=== PATIENT | female | born 1985 | race Caucasian/White ===

== ENCOUNTER 2017-10-16 18:03 | Emergency (ER) | payer OTHER ==
[~2017-10-16] VITALS: Ht 152.4 cm; Wt 72.2 kg
[~2017-10-16 18:03] MED LIST: FOLI1TAB PO; IBUP800 PO; LEXA10TA PO; METH2.5 PO; NORT1TAB3 PO; ONDA1TAB16 PO; PRED5SOL PO
[2017-10-16 18:05] VITALS: BP 184/97; PULSE 82; RESP 16; TEMP 98.3
[2017-10-16 18:18] LABS: BILIRUBIN, URINE NEG (NEG); BLOOD, URINE NEG (NEG); GLUCOSE,URINE NEG (NEG); KETONE, URINE NEG (NEG); NITRITE,URINE NEG (NEG); URINE COLOR YELLOW (YELLW/STRAW); URINE LEUKOCYTE ESTERASE NEG (NEG)
[2017-10-16] MEDS ORDERED: TRAM50TA PO (18:18)
[2017-10-16 18:23] LABS: MUCUS URINE FEW /lpf (OCC); SQUAMOUS EPITHELIAL CELL URINE >8 /hpf (0-5); WBC, URINE 0-2 /hpf (0-5)
[2017-10-16 18:24] LABS: BACTERIA, URINE RARE /hpf
[2017-10-16] MEDS ORDERED: SODIUM CHLOR 0.9% 1000 ML INJ 1,000 ML IV ONE (18:30)
[2017-10-16] MEDS ORDERED: KETOROLAC TROMETHAMINE 30 MG/ML (IVP) VIAL IV PUSH ONE (18:30)
[2017-10-16] MEDS ORDERED: ONDANSETRON HCL 4 MG/2 ML VIAL IV PUSH ONE (18:30)
--- NOTE | 2017-10-16 18:33 | PD ---
HPI Chief Complaint: Flank/Kidney Pain Time Seen by Provider: 18:20 Travel History International Travel<30 days: No Contact w/Intl Traveler<30days: No Traveled to known affect area: No History of Present Illness HPI 32-year-old female complaints of right flank pain. Patient states that she started having right flank pain 3 days ago. Patient states the pain lasted a short period of time and completely resolved. Patient started having right flank pain again today. Patient states that the pain started about 3 hours prior to arrival. Patient stated pain is sharp pain started in the right flank area with radiation to right side the abdomen. Patient denies any fever chills. Patient states that she has nausea. Patient denies any vomiting diarrhea. Patient denies any dysuria frequency. Patient denies any vaginal discharge or bleeding. On a scale of 1-10 the pain is a 7. Patient has history kidney stone in the past. PFSH Past Medical History Diminished Hearing: No Kidney Stones: Yes Musculoskeletal: Yes (ANKYLOSIS SPONDILITIS) Immunizations Current: Yes ?: Not LMP: 2 weeks : 2 Para: 1 Miscarriage: 1 : 0 Past Surgical History AICD: No Section: Yes Gynecologic Surgery: Yes (C SECTION) Joint Replacement: No Pacemaker: No Other Surgery: Yes Social History Alcohol Use: Yes (SOCIAL ) Tobacco Use: No Substance Use: No Allergies-Medications (Allergen,Severity, Reaction): Coded Allergies: No Known Allergies (Verified Adverse Reaction, Unknown, 10/16/17) Reported Meds & Prescriptions Reported Meds & Active Scripts Active Reported Tramadol (Tramadol HCl) 50 Mg Tab 50 Mg PO Q4H PRN Review of Systems General / Constitutional: No: Fever Eyes: No: Visual changes HENT: No: Headaches Cardiovascular: No: Chest Pain or Discomfort Respiratory: No: Shortness of Breath Gastrointestinal: Positive: Nausea, Abdominal Pain Genitourinary: No: Dysuria Musculoskeletal: No: Pain Skin: No Rash Neurologic: No: Weakness Psychiatric: No: Depression Endocrine: No: Polydipsia Hematologic/Lymphatic: No: Easy Bruising Physical Exam Narrative GENERAL: Well-nourished, well-developed patient. SKIN: Focused skin assessment warm/dry. HEAD: Normocephalic. EYES: No scleral icterus. No injection or drainage. NECK: Supple, trachea midline. No JVD or lymphadenopathy. CARDIOVASCULAR: Regular rate and rhythm without murmurs, gallops, or rubs. RESPIRATORY: Breath sounds equal bilaterally. No accessory muscle use. GASTROINTESTINAL: Abdomen soft, nondistended. Patient has mild tenderness on palpation right mid abdomen. No rebound tenderness. No mass. MUSCULOSKELETAL: No cyanosis, or edema. BACK: Patient has mild tenderness in palpation right flank area, without obvious deformity. No CVA tenderness. Data Data Last Documented VS Vital Signs Date Time Temp Pulse Resp B/P (MAP) Pulse Ox O2 Delivery O2 Flow Rate FiO2 10/16/17 18:05 98.3 82 16 184/97 (126) Orders Orders Ed Urine Pregnancytest Poc (10/16/17 18:09) Urinalysis - C+S If Indicated (10/16/17 18:09) Basic Metabolic Panel (Bmp) (10/16/17 18:25) Iv Access Insert/Monitor (10/16/17 18:25) Ecg Monitoring (10/16/17 18:25) Oximetry (10/16/17 18:25) Ct Abd/Pel W/O Iv Contrast (10/16/17 18:25) Sodium Chlor 0.9% 1000 Ml Inj (Ns 1000 M (10/16/17 18:30) Ondansetron Inj (Zofran Inj) (10/16/17 18:30) Ketorolac Inj (Toradol Inj) (10/16/17 18:30) Labs Laboratory Tests Test 10/16/17 18:15 10/16/17 18:40 Urine Collection Type VOIDED Urine Color YELLOW Urine Turbidity SL CLOUDY Urine pH 6.0 Urine Specific [place] GREATER/EQUAL 1.030 Urine Protein NEG mg/dL Urine Glucose (UA) NEG mg/dL Urine Ketones NEG mg/dL Urine Occult Blood NEG Urine Nitrite NEG Urine Bilirubin NEG Urine Urobilinogen 0.2 MG/DL Urine Leukocyte Esterase NEG Urine WBC 0-2 /hpf Urine Squamous Epithelial Cells >8 /hpf Urine Bacteria RARE /hpf Urine Mucus FEW /lpf Microscopic Urinalysis Comment CULT NOT INDICATED Blood Urea Nitrogen 12 MG/DL Creatinine 0.73 MG/DL Random Glucose 96 MG/DL Calcium Level 9.0 MG/DL Sodium Level 141 MEQ/L Potassium Level 3.6 MEQ/L Chloride Level 108 MEQ/L Carbon Dioxide Level 26.7 MEQ/L Anion Gap 6 MEQ/L Estimat Glomerular Filtration Rate 92 ML/MIN [facility] Medical Decision Making Medical Screen Exam Complete: Yes Emergency Medical Condition: Yes Interpretation(s) Last Impressions Abdomen/Pelvis CT 10/16/17 1825 Signed Impressions: CONCLUSION: 1. There is a 2 mm stone at the right ureterovesical junction causing right hy dronephrosis and hydroureter. No other renal stones are present. 2. No other acute finding is identified. Urine test negative. UA is negative. BMP within normal limits. Differential Diagnosis Differential diagnosis including nephrolithiasis, pyelonephritis. Narrative Course 32-year-old female with right flank pain with radiation to right mid abdomen. History of kidney stone. Normal saline solution 1 L IV bolus. Toradol 30 mg IV. Zofran 4 mg IV. Diagnosis Primary Impression: Nephrolithiasis Patient Instructions: General Instructions Additional Instructions: Take medications as needed for pain. Follow-up with urologist. Return if intractable pain, fever, persistent vomiting. Med/Other Pt SpecificInfo: Prescription(s) given Scripts Ondansetron Odt (Zofran Odt) 4 Mg Tab 4 MG SL Q6HR Y for Nausea/Vomiting, #10 TAB 0 Refills Prov: Eyal Thomas MD 10/16/17 Tamsulosin (Flomax) 0.4 Mg Cap 0.4 MG PO HS for Manage Prostate Problems, #10 CAP 0 Refills Prov: Eyal Thomas MD 10/16/17 Hydrocodone-Acetaminophen ([place]) 5 Mg-325 Mg Tab 1 TAB PO Q6H Y for PAIN, #12 TAB 0 Refills Prov: Eyal Thomas MD 10/16/17 Disposition: 01 DISCHARGE HOME Condition: Stable Eyal Thomas MD Oct 16, 2017 18:33
--- NOTE | 2017-10-16 18:54 | RADRPT ---
EXAM DATE: 10/16/2017 6:48 PM EDT AGE/SEX: 32 years / Female INDICATIONS: Right flank pain. CLINICAL DATA: This is the patient's initial encounter. Patient reports that signs and symptoms have been present for 1 day and indicates a pain score of 8/10. MEDICAL/SURGICAL HISTORY: Renal calculi. section. RADIATION DOSE: 8.51 CTDI (mGy) COMPARISON: [facility], CT ABDOMEN & PELVIS W/O CONTRAST, 08/18/2015. . TECHNIQUE: Multiple contiguous axial images were obtained through the abdomen. Images were obtained using multiple row detector helical technique. Using dose reduction techniques, radiation dose was ke pt as low as reasonably achievable to obtain optimal diagnostic quality images. FINDINGS: Lower chest: No acute abnormality is identified. Hepatobiliary: Liver density is within normal limits. No focal lesion is identified on this noncontra st examination. Gallbladder is absent with clips in the gallbladder fossa. There is no bile duct dila tation. Kidneys: There is right hydronephrosis and hydroureter with a 2 mm stone at the right ureterovesical junction. No other renal stones are present. No renal mass is identified on this noncontrast examinat ion. Adrenal Glands: Within normal limits. Spleen: Within normal limits. Pancreas: Within normal limits. Vascular: The aorta is nonaneurysmal. Bowel/Mesentery: The stomach and small bowel demonstrate no abnormality. No acute colon abnormality i s seen. There is no free intraperitoneal air or fluid. Abdominal Wall: There is a small umbilical hernia. Scar is present on the anterior abdominal wall in the pelvis. Retroperitoneum: No lymphadenopathy. Bladder: No wall thickening or mass. Reproductive: No acute abnormality. Inguinal: No lymphadenopathy or hernia. Musculoskeletal: No acute osseous abnormality is identified. There is sclerosis adjacent to the sacro iliac joints bilaterally similar to the prior examination. CONCLUSION: 1. There is a 2 mm stone at the right ureterovesical junction causing right hydronephrosis and hydro ureter. No other renal stones are present. 2. No other acute finding is identified. Electronically signed by: Jayy Chandler MD 10/16/2017 6:53 PM EDT
[2017-10-16 19:05] LABS: BICARBONATE 26.7 MEQ/L (21.0-32.0)
[2017-10-16 19:08] LABS: CREATININE 0.73 MG/DL (0.50-1.00)
[2017-10-16 19:15] VITALS: BP 156/88; PULSE 85; RESP 20
[2017-10-16] MEDS ORDERED: TAMS5CAP PO (19:25)
[2017-10-16] MEDS ORDERED: ZOFR4TAB3 SL (19:25)
[2017-10-16] MEDS ORDERED: NORC5TAB PO (19:25)
[2017-10-16 19:47] VITALS: BP 153/82
== END 2017-10-16 19:51 | disposition home or self-care (01) ==
LOC: PHED 18:03
DX: N13.2 Hydronephrosis with renal and ureteral calculous obstruction (principal); Z87.442 Personal history of urinary calculi
CPT/HCPCS: 74176; 80048; 81001; 84703; 96374; 96375; 99284; J1885; J2405; J7030